=== PATIENT | male | born 1960 | race Caucasian/White ===

== ENCOUNTER 2017-11-27 14:22 | Emergency (ER) | payer SELFPAY, OTHER, MEDICARE | END 2017-11-27 17:06 | disposition left against medical advice (07) | LOC: E/R 14:22 | DX: Z53.21 Procedure and treatment not carried out due to patient leaving prior to being seen by health care provider (principal) ==

== ENCOUNTER 2017-11-28 07:38 | Emergency (ER) | payer MEDICARE, OTHER ==
[2017-11-28] MEDS: ACETAMINOPHEN 325 MG TAB PO (08:00)
== END 2017-11-28 10:17 | disposition home or self-care (01) ==
LOC: FTE 07:38
DX: R51 Headache (principal)
CPT/HCPCS: 70450; 70480; 99285-25